=== PATIENT | male | born 1990 | race African-American/Black ===

== ENCOUNTER 2022-01-08 17:14 | Emergency (ER) | payer OTHER, SELFPAY ==
[2022-01-08 17:22] VITALS: BP 156/116; PULSE 85; RESP 17; TEMP 36.3; O2SAT 100
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
[2022-01-08 18:37] VITALS: BP 136/70; PULSE 78; RESP 16; TEMP 36.4; O2SAT 98
== END 2022-01-08 18:40 | disposition home or self-care (01) ==
PROVIDERS: Emergency Provider Nurse Practitioner Family
DX: S39.012A Strain of muscle, fascia and tendon of lower back, initial encounter (principal); V43.62XA Car passenger injured in collision with other type car in traffic accident, initial encounter
CPT/HCPCS: 99283